=== PATIENT | male | born 2000 | race Caucasian/White ===

== ENCOUNTER 2024-06-21 15:48 | Emergency (ER) | payer SELFPAY ==
[~2024-06-21] VITALS: Ht 177.8 cm; Wt 110.0 kg
[2024-06-21 15:52] VITALS: O2SAT 98
[2024-06-21] MEDS: DIPHENHYDRAMINE 50MG/ML VIAL IM ONE (16:00)
[2024-06-21] MEDS: TETANUS, DIPHTHERIA, PERTUSSIS VAC/PF 0.5ML (>10YR OLD) IM ONE (16:00)
[2024-06-21] MEDS: HALOPERIDOL LACTATE 5MG/ML VIAL IM ONE (16:00)
[2024-06-21] MEDS: LORAZEPAM 2MG/ML INJ IM ONE (17:07)
[2024-06-21 20:19] LABS: *AMPHETAMINES SCREEN URINE NEGATIVE (NEGATIVE); *BARBITURATES SCREEN URINE NEGATIVE (NEGATIVE); *BENZODIAZEPINES SCREEN URINE NEGATIVE (NEGATIVE); *COCAINE SCREEN URINE NEGATIVE (NEGATIVE); CANNABINOID URINE SCREEN PRESUMPTIVE POSITIVE (NEGATIVE); METHADONE URINE SCREEN NEGATIVE (NEGATIVE); OPIATES URINE SCREEN NEGATIVE (NEGATIVE); PHENCYCLIDINE URINE SCREEN NEGATIVE (NEGATIVE)
[2024-06-21 20:20] LABS: ECSTASY MDMA SCREEN URINE NEGATIVE (NEGATIVE)
[2024-06-21 20:25] LABS: EOSINOPHILS % 0.1 % (0.0-5.0); HEMATOCRIT. 48.1 % (42.0-52.0); HEMOGLOBIN. 16.5 g/dL (14.0-18.0); LYMPHOCYTES % 9.2 % (20.0-50.0); MEAN CORPUSCULAR HEMOGLOBIN 31.7 pg (28.0-32.0); MEAN CORPUSCULAR HGB CONC 34.3 g/dL (31.0-37.0); MEAN CORPUSCULAR VOLUME 92.3 fL (80.0-94.0); MEAN PLATELET VOLUME 9.2 fl (7.4-10.4); MONOCYTES % 6.2 % (2.0-8.0); NEUTROPHILS % 84.5 % (40.0-76.0); PLATELET 225 x1000/uL (130-400); RED BLOOD CELL COUNT 5.21 mill/uL (4.7-6.1); RED CELL DISTRIBUTION WIDTH 12.8 % (11.6-14.6); WHITE BLOOD COUNT 15.8 x1000/uL (4.5-11.0)
[2024-06-21 20:27] LABS: CHLORIDE 114 mEq/L (98-107); SODIUM 144 mEq/L (136-145)
[2024-06-21 20:28] LABS: CARBON DIOXIDE 21 mEq/L (21-32)
[2024-06-21 20:33] LABS: CREATININE 0.8 mg/dL (0.6-1.3); ETHANOL BLOOD 142 mg/dL (<10); GLUCOSE 98 mg/dL (70-105); UREA NITROGEN BLOOD 7 mg/dL (9-23)
[2024-06-21 20:50] VITALS: BP 135/89; PULSE 90; RESP 18; TEMP 37.33632; O2SAT 98
== END 2024-06-21 20:54 ==
LOC: ER 15:48
DX: F10.129 Alcohol abuse with intoxication, unspecified (principal); G31.89 Other specified degenerative diseases of nervous system; Y90.6 Blood alcohol level of 120-199 mg/100 ml
CPT/HCPCS: 80305; 80048; 80320; 85025; 36415; 70450; 72125; 73200; 90715; 90471; 96372; 99285; J1200; J1630; J2060; Z7610; G0480